=== PATIENT | female | born 1985 | race Caucasian/White ===

== ENCOUNTER 2021-04-30 06:28 | Emergency (ER) | payer OTHER, SELFPAY ==
--- NOTE | ~2021-04-30 | XR_ITS ---
EXAMINATION: XR chest 2V 04/30/2021 06:48 INDICATION: Chest pain and nausea PROCEDURE: 2 view chest COMPARISON: No prior studies for comparison. FINDINGS: The lungs are clear. The cardiomediastinal silhouette is within normal limits. There are no pleural effusions. There is no pneumothorax suspected. There is pectus excavatum. IMPRESSION: 1: NO ACUTE CARDIOPULMONARY DISEASE. Reviewed, dictated and finalized at location A.
--- NOTE | ~2021-04-30 | CT_ITS ---
EXAMINATION: CT abdomen pelvis w con DATE: 04/30/2021 08:28 INDICATION: Nausea, vomiting and diarrhea TECHNIQUE: Computed tomography (CT) of the abdomen and pelvis was performed with 100 cc Omnipaque 350 intravenous contrast. The dose-length product was 501.89 mGy-cm. Automated exposure control and iter ative reconstruction technique were employed. COMPARISON: None. FINDINGS: Lung bases are unremarkable. Heart size normal. There is pectus excavatum. No significant p leural or pericardial effusion. Status post cholecystectomy with expected prominence of the bile duct s. No significant vascular abnormality. No lymphadenopathy. The spleen, pancreas, adrenal glands and kidneys are unremarkable. There is moderate fluid in the dis mirta small bowel which is nonobstructive. Consider enteritis in the appropriate clinical setting. No a bnormal pelvic masses or fluid collections. No free air. IMPRESSION: 1. Moderate fluid in the distal small bowel and proximal colon, possibly enteritis. Correlate clinica lly. No obstruction. Reviewed, dictated and finalized at location A. IMPRESSION: 1. Moderate fluid in the distal small bowel and proximal colon, possibly enteri tis. Correlate clinically. No obstruction.
--- NOTE | 2021-04-30 06:34 | ECG_ITS ---
Measurements Intervals [place] Rate: 69 P: 41 ND: 139 QRS: 64 QRSD: 111 T: 52 QT: 382 QTc: 411 Interpretive Statements SINUS RHYTHM POSSIBLE LEFT ATRIAL ENLARGEMENT [-0.1mV P WAVE IN V1/V2] INCOMPLETE RIGHT BUNDLE BRANCH BLOCK [90+ ms QRS DURATION, TERMINAL R IN V1/V2, 40+ ms S IN I/aVL/V4/V5/V6] ABNORMAL ECG NO PREVIOUS ECG AVAILABLE FOR COMPARISON Electronically Signed On 04-30-2021 15:56:14 CDT by Tashi Kim M.D.
[2021-04-30 06:35] VITALS: BP 91/77; PULSE 89; RESP 18; TEMP 37; O2SAT 98
[2021-04-30] MEDS: ASPIRIN 81 MG CHEWABLE TABLET 324 MG PO (06:51)
[2021-04-30] MEDS: SODIUM CHLORIDE 0.9% IV 1,000 ML 999 ML (07:45)
[2021-04-30 07:55] LABS: Basophils Percent Auto 0.5 % (0.2-1.2); Eosinophils Percent Auto 0.3 % (0-4.4); Hematocrit 46.5 % (37.0-47.0); Hemoglobin 15.2 g/dL (12.0-15.0); Immature Granulocyte Absolute 0.02 K/mm3 (0.00-0.031); Immature Granulocyte Percent A 0.3 % (0-0.5); Lymphocytes Absolute Auto 0.67 K/mm3 (0.9-3.2); Lymphocytes Percent Auto 11.5 % (18.3-44.2); Mean Corpuscular HGB Conc 32.7 g/dl (32-36); Mean Corpuscular Hemoglobin 29.1 pg (26-34); Mean Corpuscular Volume 89.1 fl (80-100); Mean Platelet Volume 10.6 fl (7.4-10.4); Monocytes Absolute Auto 0.4 K/mm3 (0.1-0.6); Monocytes Percent Auto 6.9 % (2.6-8.5); Neutrophils Absolute Auto 4.7 K/mm3 (1.3-6.7); Neutrophils Percent Auto 80.5 % (45.5-73.1); Platelet Count Result 229 k/mm3 (150-375); Red Blood Count 5.22 M/mm3 (4.2-5.4); Red Cell Distribution Width 13.2 % (11.5-14.5); White Blood Count 5.8 K/mm3 (4.5-10.0)
[2021-04-30 07:59] LABS: Alanine Aminotransferase 34 U/L (4-35); Albumin Level 4.3 g/dL (3.5-5.1); Alkaline Phosphatase 62 U/L (38-126); Anion Gap 4 mmol/L (8-16); Aspartate Amino Transferase 34 U/L (14-36); Bilirubin,Total 0.6 mg/dL (0.2-1.3); Blood Urea Nitrogen 9 mg/dL (7-17); Calcium 8.3 mg/dL (8.4-10.2); Carbon Dioxide 26 mmol/L (22-30); Chloride 104 mmol/L (98-107); Estimated CRCL calculation 94 ml/min; Estimated Glomerular Filt Rate > 60; Glucose 91 mg/dL (65-110); Lipase 104 U/L (23-300); Potassium 3.7 mmol/L (3.4-5.0); Sodium 134 mmol/L (137-145)
--- NOTE | 2021-04-30 08:01 | ED.ABDPAIN ---
HPI - Abdominal Pain General Chief Complaint: Chest Pain <Shayne Ocasio MD - Last Filed: 04/30/21 08:05> Stated Complaint: n/v, chest pain <Shayne Ocasio MD - Last Filed: 04/30/21 08:05> Time Seen by Provider: 04/30/21 07:52 <Shayne Ocasio MD - Last Filed: 04/30/21 08:05> Source: patient <Shayne Ocasio MD - Last Filed: 04/30/21 08:05> Mode of arrival: ambulatory <Shayne Ocasio MD - Last Filed: 04/30/21 08:05> Limitations: no limitations <Shayne Ocasio MD - Last Filed: 04/30/21 08:05> History of Present Illness HPI narrative: Patient is a 35-year-old female complaining of abdominal pain, upper abdominal area, sharp, radiating to chest and mid back, 7 out of 10, accompanied by nausea that started this morning. Patient denies any shortness of breath, vomiting, diaphoresis, fever or chills. <Shayne Ocasio MD - Last Filed: 04/30/21 08:05> Related Data Allergies/Adverse Reactions: Allergies Allergy/AdvReac Type Severity Reaction Status Date / Time No Known Allergies Allergy Unverified 02/13/18 21:33 <Shayne Ocasio MD - Last Filed: 04/30/21 08:05> Review of Systems Review of Systems: All systems reviewed & are unremarkable except as noted in HPI and below <Shayne Ocasio MD - Last Filed: 04/30/21 08:05> Constitutional: Constitutional: Denies body ache(s), Denies chills, Denies excessive sweating, Denies fatigue, Denies fever(s), Denies headache(s), Denies lethargy, Denies malaise, Denies weakness and Denies weight loss <Shayne Ocasio MD - Last Filed: 04/30/21 08:05> Eyes: Eyes: Denies blurry vision, Denies change in vision and Denies loss of vision <Shayne Ocasio MD - Last Filed: 04/30/21 08:05> ENT: Denies dizziness, Denies ear discharge, Denies headache(s), Denies lip swelling, Denies epistaxis, Denies nasal congestion, Denies neck pain, Denies throat swelling and Denies tongue swelling <Shayne Ocasio MD - Last Filed: 04/30/21 08:05> Cardiovascular: Cardiovascular: Denies diaphoresis, Denies rapid heart rate, Denies edema, Denies irregular heart rhythm, Denies lightheadedness, Denies palpitations, Denies dyspnea and Denies dyspnea on exertion <Shayne Ocasio MD - Last Filed: 04/30/21 08:05> Respiratory: Respiratory: Denies chest congestion, Denies cough, Denies hemoptysis, Denies dyspnea and Denies dyspnea on exertion <Shayne Ocasio MD - Last Filed: 04/30/21 08:05> Gastrointestinal: Gastrointestinal: Denies melena, Denies hematochezia, Denies diarrhea, Denies vomiting and Denies hematemesis <Shayne Ocasio MD - Last Filed: 04/30/21 08:05> Musculoskeletal: Musculoskeletal: Denies abnormal gait, Denies deformity, Denies joint swelling, Denies limited range of motion, Denies neck pain and Denies numbness <Shayne Ocasio MD - Last Filed: 04/30/21 08:05> Neurologic: Denies Abnormal speech present, Denies abnormal gait, Denies confusion, Denies dizziness, Denies headache(s), Denies focal weakness, Denies loss of vision, Denies numbness, Denies Other visual disturbances, Denies Sensory deficit (Neuro) and Denies weakness <Shayne Ocasio MD - Last Filed: 04/30/21 08:05> Psychiatric: Psychiatric: Denies confusion, Denies depression, Denies auditory hallucinations, Denies homicidal ideation and Denies suicidal ideation <Shayne Ocasio MD - Last Filed: 04/30/21 08:05> Endocrine: Endocrine: Denies cold intolerance, Denies excessive sweating, Denies fatigue, Denies heat intolerance and Denies palpitations <Shayne Ocasio MD - Last Filed: 04/30/21 08:05> Hematologic/Lymphatic: Hematologic/Lymphatic: Denies easy bleeding and Denies easy bruising <Shayne Ocasio MD - Last Filed: 04/30/21 08:05> Allergic/Immunologic: Allergic/Immunologic: Denies lip swelling, Denies throat swelling and Denies tongue swelling <Shayne Ocasio MD - Last Filed: 04/30/21 08:05> PMFSH Comments Past medi
[2021-04-30 08:04] LABS: INR 1.1; Prothrombin Time 13.3 Seconds (11.1-14.7)
[2021-04-30 08:05] LABS: Partial Thromboplastin Time 26.6 SECONDS (22.3-36.8)
[2021-04-30 08:10] LABS: Troponin I < 0.012 ng/mL (0.000-0.034)
[2021-04-30] MEDS: KETOROLAC 30 MG/ML VIAL (*BKC) IV PUSH (08:13)
[2021-04-30] MEDS: PROMETHAZINE HCL 25 MG/ML AMPUL 12.5 MG IV PUSH (08:14)
[2021-04-30 08:16] VITALS: BP 85/72; PULSE 87; RESP 15
[2021-04-30 08:18] VITALS: BP 95/73; PULSE 68; RESP 14; O2SAT 100
[2021-04-30 09:48] VITALS: BP 104/64; PULSE 63; RESP 16; O2SAT 100
== END 2021-04-30 09:48 | disposition home or self-care (01) ==
PROVIDERS: Emergency Provider Emergency Medicine; PCP Family Medicine
DX: K52.9 Noninfective gastroenteritis and colitis, unspecified (principal); R07.89 Other chest pain
CPT/HCPCS: 36415; 71046; 74177; 80053; 83690; 84484; 85025; 85610; 85730; 93005; 96361; 96374; 96375; 99284; A9270; J1885; J2550; J7030; Q9967